=== PATIENT | female | born 1995 | race Caucasian/White ===

== ENCOUNTER 2018-08-02 19:32 | Emergency (ER) | payer OTHER ==
[2018-08-02 20:54] LABS: PLATELET COUNT 374 10^3/uL (150-400)
--- NOTE | 2018-08-02 21:34 | EDPHY ---
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 The dog came in to the clinic over the weekend with a respiratory illness. Patient handled the animal before it was started on antibiotics. According to the patient as well as the out and out cigar maker hand who I called with the patient's permission the dog has been on Unasyn, a fluoroquinolone and subsequently doxycycline. The initial concern was the dog could be infected with aspergillus, however after the dog developed significant submandibular adenopathy it was sent to [facility], lymph node biopsies were sent for the plague as well as [place]. Both of these reportedly came back as negative. However there is concern that the dog could still have the plague as the dog has been exposed to praire dogs and the testing of the lymph nodes was after the dog was treated with antibiotics and symptomatic care. Patient has developed low-grade infectious symptoms including tactile fevers, runny nose and a nonproductive cough. No headache or neck pain. No rash. Review of systems: A 10 point review of systems was obtained and other than described above was negative - Medical/Surgical History Hx Asthma: No Hx Chronic Respiratory Disease: No Hx Diabetes: No Hx Cardiac Disease: No Hx Renal Disease: No Hx Cirrhosis: No Hx Alcoholism: No Hx HIV/AIDS: No Hx Splenectomy or Spleen Trauma: No Other PMH: anxiety/depression, ibs, orif R elbow - Social History Smoking Status: Never smoked Constitutional: Initial Vital Signs Temperature (C) 37.2 C 08/02/18 19:35 Heart Rate 96 08/02/18 19:35 Respiratory Rate 16 08/02/18 19:35 Blood Pressure 141/92 H 08/02/18 19:35 O2 Sat (%) 100 08/02/18 19:35 O2 Delivery Mode Room Air Allergies/Adverse Reactions: No Known Allergies Allergy (Unverified 08/02/18 19:42) Home Medications: Medication Instructions Recorded Anxiety/Depression Med 08/02/18 Doxycycline Hyclate [Vibramycin 100 mg PO BID #19 cap 08/02/18 100 MG (*)] Propranolol HCl 08/02/18 Medical Decision Making ED Course/Re-evaluation: Patient was discussed with my secondary supervising physician Dr. Danny Francis. Patient presents to the emergency department after being exposed to an animal infected with an unknown disease, possibly the plague. I consulted with Infectious Disease, Dr. Varun Mariscal. CBC, chemistry, chest x-ray and blood cultures obtained per his recommendations. Patient started on a course of doxycycline. Patient can follow up in his clinic for further evaluation and care. Strict return precautions were given. The patient voiced understanding and agreement with plan. Differential Diagnosis: Included but not limited to viral syndrome as well as zoonotic diseases - Data Points Laboratory Results: Laboratory Results 08/02/18 20:45 08/02/18 20:45 Microbiology Results: MICROBIOLOGY 08/02/18 21:25 Blood Blood Culture - Preliminary 08/02/18 21:00 Blood Blood Culture - Preliminary Medications Given: Discontinued Medications Doxycycline Hyclate (Doxycycline Hyclate) 100 mg PO EDNOW ONE PRN Reason: Protocol Stop: 08/02/18 21:33 Last Admin: 08/02/18 21:39 Dose: 100 mg Departure - Departure Disposition: Home, Routine, Self-Care Clinical Impression: Infectious disease exposure Condition: Good Instructions: Doxycycline (By mouth) Additional Instructions: Please call and arrange a follow-up appointment with Infectious Disease next week. Please let them know that blood cultures are pending Take antibiotics as prescribed until finished If symptoms worsen or new symptoms develop return to the emergency room for recheck Referrals: NONE *PRIMARY CARE P,. [Primary Care Provider] - As per Instructions Varun Mariscal MD [Medical Doctor] - As per Instructions Prescriptions: Doxycycline Hyclate [Vibramycin 100 MG (*)] 100 mg PO BID #19 cap
[2018-08-02] MEDS: DOXYCYCLINE HYCLATE 100 MG CAP/TAB PO ONE (21:39)
[2018-08-02 21:44] VITALS: BP 121/65
== END 2018-08-02 21:41 | disposition home or self-care (01) ==
DX: Z20.89 Contact with and (suspected) exposure to other communicable diseases (principal); Y99.0 Civilian activity done for income or pay